=== PATIENT | male | born 1940 | race African-American/Black ===

== ENCOUNTER 2017-01-18 18:35 | Inpatient (IN) | payer MEDICARE, MEDICAID ==
[~2017-01-18] VITALS: Ht 177.8 cm; Wt 95.7 kg
[2017-01-18] MEDS ORDERED: METF500T4 PO (18:46)
[2017-01-18] MEDS ORDERED: SODIUM CHLORIDE 0.9% 1,000 ML IV ONE (19:40)
[2017-01-18 19:51] LABS: BASOPHILS % 0.6 % (0.0-2.0); EOSINOPHILS % 4.9 % (0.0-5.0); HEMATOCRIT. 32.8 % (42.0-52.0); HEMOGLOBIN. 10.6 g/dL (14.0-18.0); MEAN CORPUSCULAR HEMOGLOBIN 25.2 pg (28.0-32.0); MEAN CORPUSCULAR VOLUME 77.8 fL (80.0-94.0); MEAN PLATELET VOLUME 8.8 fl (7.4-10.4); MONOCYTES % 9.9 % (2.0-8.0); NEUTROPHILS % 46.6 % (40.0-76.0); PLATELET 212 x1000/uL (130-400); RED BLOOD CELL COUNT 4.22 mill/uL (4.7-6.1); RED CELL DISTRIBUTION WIDTH 15.2 % (11.6-14.6)
[2017-01-18 19:57] LABS: PARTIAL THROMBOPLASTIN TIME 26.2 sec (23.4-31.0); PROTHROMBIN TIME 10.8 sec (9.4-11.6)
[2017-01-18 20:05] LABS: CARBON DIOXIDE 23 mEq/L (21-32); CHLORIDE 106 mEq/L (98-107); TROPONIN I < 0.02 ng/mL (0.00-0.04)
[2017-01-18 20:11] LABS: CREATINE KINASE 157 IU/L (39-308); CREATINE KINASE MB FRACTION 1.4 ng/mL (0.5-3.6); T4 FREE 1.04 ng/dL (0.76-1.46)
[2017-01-18] MEDS ORDERED: ASPIRIN 81MG TABLET PO ONE (20:15)
[2017-01-18] MEDS ORDERED: FUROSEMIDE 20MG/2ML VIAL IVP ONE (21:00)
[2017-01-18 22:20] VITALS: BP 123/61
[2017-01-18 23:44] VITALS: BP 123/61
[2017-01-19] VITALS: BP 131/63
[2017-01-19] MEDS ORDERED: DEXTROSE 50% WATER 50ML SYRINGE IV PRN (01:00)
[2017-01-19] MEDS ORDERED: HYDROCODONE/ACETAMINOPHEN 5/325MG TABLET PO PRN (01:00)
[2017-01-19 04:00] VITALS: BP 140/65
[2017-01-19] MEDS: BLOOD SUGAR DIAGNOSTIC STRIP TEST SCH ×4 (05:49→20:41)
[2017-01-19] MEDS: INSULIN LISPRO 100 UNITS/ML SUBCUT SCH ×4 (06:07→21:17)
[2017-01-19 07:20] LABS: CREATINE KINASE 139 IU/L (39-308); CREATINE KINASE MB FRACTION 1.4 ng/mL (0.5-3.6); TROPONIN I < 0.02 ng/mL (0.00-0.04)
[2017-01-19 08:00] VITALS: BP 165/80
[2017-01-19 12:00] VITALS: BP 148/76
[2017-01-19 12:01] LABS: T4 FREE 1.05 ng/dL (0.76-1.46)
[2017-01-19] MEDS: CLOPIDOGREL 75MG TABLET PO SCH (12:40)
[2017-01-19] MEDS ORDERED: MORPHINE SULFATE 2 MG/ML CPJ (NOT FOR IM USE) IV PRN (14:00)
[2017-01-19 16:00] VITALS: BP 139/79
[2017-01-19 19:40] LABS: CREATINE KINASE 134 IU/L (39-308); CREATINE KINASE MB FRACTION 0.8 ng/mL (0.5-3.6); TROPONIN I < 0.02 ng/mL (0.00-0.04)
[2017-01-19 20:00] VITALS: BP 158/90
[2017-01-19] MEDS ORDERED: ENOXAPARIN 40MG/0.4ML SYR SUBCUT SCH (20:00)
[2017-01-19] MEDS ORDERED: DILT360C27 PO (20:47)
[2017-01-19] MEDS ORDERED: ASPI-1159 PO (20:47)
[2017-01-19] MEDS ORDERED: METO50TA5 PO (20:47)
[2017-01-19] MEDS ORDERED: CARV25TA47 PO (20:47)
[2017-01-19] MEDS ORDERED: PIOG15TA6 PO (20:47)
[2017-01-19] MEDS ORDERED: PREG50CA PO (20:47)
[2017-01-19] MEDS ORDERED: ZET10 PO (20:47)
[2017-01-19] MEDS ORDERED: VALS320T2 PO (20:47)
[2017-01-19] MEDS ORDERED: LISI40TA4 PO (20:47)
[2017-01-19] MEDS ORDERED: TRAV2.5D EACHEYE (20:47)
[2017-01-19] MEDS ORDERED: LIP40 PO (20:47)
[2017-01-19] MEDS ORDERED: MEDICATION NOT ON FORMULARY EA (Valsartan (Diovan) 1 TAB) PO SCH (21:30)
[2017-01-19] MEDS ORDERED: LISINOPRIL 40MG TABLET PO SCH (21:30)
[2017-01-19] MEDS ORDERED: METFORMIN HCL 500MG TABLET PO SCH (21:30)
[2017-01-19] MEDS: EZETIMIBE 10MG TABLET PO SCH (22:43)
[2017-01-19] MEDS: ASPIRIN 81MG EC TABLET PO SCH (22:43)
[2017-01-19] MEDS: PREGABALIN 50 MG CAPSULE PO SCH (22:43)
[2017-01-19] MEDS: CARVEDILOL 25MG TABLET PO SCH (22:44)
[2017-01-19] MEDS: PIOGLITAZONE 15MG TABLET PO SCH (22:44)
[2017-01-20] VITALS: BP 147/78
[2017-01-20 00:25] LABS: CREATINE KINASE 126 IU/L (39-308)
[2017-01-20 00:29] LABS: TROPONIN I < 0.02 ng/mL (0.00-0.04)
[2017-01-20] MEDS ORDERED: DILTIAZEM HCL 180MG CAPSULE CD 24HR PO SCH ×2 (01:00)
[2017-01-20] MEDS: BLOOD SUGAR DIAGNOSTIC STRIP TEST SCH ×2 (06:28→11:45)
[2017-01-20] MEDS: INSULIN LISPRO 100 UNITS/ML SUBCUT SCH ×2 (06:35→13:05)
[2017-01-20] MEDS ORDERED: SODIUM CHLORIDE 0.9% 1,000 ML IV SCH (07:30)
[2017-01-20 08:00] VITALS: BP 147/55
[2017-01-20 09:00] LABS: BASOPHILS % 1.2 % (0.0-2.0); EOSINOPHILS % 4.7 % (0.0-5.0); HEMATOCRIT. 33.5 % (42.0-52.0); HEMOGLOBIN. 11.2 g/dL (14.0-18.0); LYMPHOCYTES % 34.2 % (20.0-50.0); MEAN CORPUSCULAR HEMOGLOBIN 25.2 pg (28.0-32.0); MEAN CORPUSCULAR VOLUME 75.7 fL (80.0-94.0); MEAN PLATELET VOLUME 8.9 fl (7.4-10.4); MONOCYTES % 7.3 % (2.0-8.0); NEUTROPHILS % 52.6 % (40.0-76.0); PLATELET 209 x1000/uL (130-400); RED BLOOD CELL COUNT 4.43 mill/uL (4.7-6.1); RED CELL DISTRIBUTION WIDTH 15.7 % (11.6-14.6)
[2017-01-20] MEDS: CARVEDILOL 25MG TABLET PO SCH (09:00)
[2017-01-20] MEDS: ASPIRIN 81MG EC TABLET PO SCH (09:00)
[2017-01-20] MEDS ORDERED: METOPROLOL TARTRATE 50MG TABLET PO SCH (09:00)
[2017-01-20] MEDS ORDERED: ASPIRIN 81MG TABLET PO SCH (09:00)
[2017-01-20 09:13] LABS: CARBON DIOXIDE 23 mEq/L (21-32); CHLORIDE 109 mEq/L (98-107); PHOSPHORUS 3.2 mg/dL (2.5-4.9)
[2017-01-20] MEDS: PREGABALIN 50 MG CAPSULE PO SCH (09:16)
[2017-01-20] MEDS: CLOPIDOGREL 75MG TABLET PO SCH (09:16)
[2017-01-20] MEDS: PIOGLITAZONE 15MG TABLET PO SCH (09:16)
[2017-01-20] MEDS: EZETIMIBE 10MG TABLET PO SCH (09:17)
[2017-01-20 12:00] VITALS: BP 163/72
[2017-01-20] MEDS ORDERED: ATORVASTATIN CALCIUM 40MG TABLET PO SCH (21:00)
[2017-01-20] MEDS ORDERED: LATANOPROST 0.005% OPHTH DROPS 2.5ML EACHEYE SCH (21:00)
== END 2017-01-20 15:55 | disposition left against medical advice (07) | DRG 291 ==
LOC: ER 19:02 → 5WST 20:01 → EDBEDREQ 20:05 → EDBEDREQTM 20:05 → ENRESERV 21:32
PROVIDERS: ADMIT Family Medicine; ATTEND Family Medicine
DX: I11.0 Hypertensive heart disease with heart failure (principal); N17.0 Acute kidney failure with tubular necrosis; E87.5 Hyperkalemia; D64.9 Anemia, unspecified; E11.9 Type 2 diabetes mellitus without complications; I48.91 Unspecified atrial fibrillation; I50.31 Acute diastolic (congestive) heart failure; K21.9 Gastro-esophageal reflux disease without esophagitis; E66.9 Obesity, unspecified; R00.2 Palpitations; Z53.21 Procedure and treatment not carried out due to patient leaving prior to being seen by health care provider; I25.10 Atherosclerotic heart disease of native coronary artery without angina pectoris; E78.5 Hyperlipidemia, unspecified; Z95.5 Presence of coronary angioplasty implant and graft; Z79.84 Long term (current) use of oral hypoglycemic drugs; Z79.899 Other long term (current) drug therapy; Z68.30 Body mass index [BMI] 30.0-30.9, adult
CPT/HCPCS: 36415; 70450; 71010; 74000; 76770; 80053; 80061; 82550; 82553; 82962; 83036; 83690; 83735; 83880; 84100; 84439; 84443; 84481; 84484; 85025; 85379; 85610; 85730; 93005; 93306; 93970; 96361; 96374; 99285; C1893; J1650; J1815; J1940; J2270; J7030